=== PATIENT | male | born 1970 | race Caucasian/White ===

== ENCOUNTER 2018-11-27 11:27 | Day surgery (SDC) | payer OTHER, SELFPAY ==
--- NOTE | 2018-11-07 03:13 | HP_ITS ---
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 Steel Checker Required: No Is patient in pain?: Yes (Bilateral groin) Pain scale (1-10): 3 Allergies Penicillins Allergy (Unknown, Verified 11/07/18 14:32) Unknown Medications NK 11/07/18 [History Confirmed 11/07/18] PFSH Medical History Numbness and tingling (Acute) Hemorrhoids (Acute) Nausea (Acute) Abdominal pain (Acute) Testicular torsion (Inactive) Surgical History History of torsion of testis (Acute) Hx of foot surgery (Acute) Hx of arthroscopy of left knee (Acute) Hx of wisdom tooth extraction (Acute) Family History Father Seizures Heart disease Throat cancer Social History (Updated 11/07/18 @ 15:13 by Nahum Franz MD) Smoking Status: Former smoker second hand exposure: No alcohol intake: former year quit: 2018 substance use type: marijuana caffeine: Yes what type of physical activity do you participate in: none frequency: does not exercise HPI HPI HPI: MANJU CHAKRABORTY, is a 48 M who presents to the office today for HPI HPI Surgical H&P: Yes HPI: MANJU CHAKRABORTY, is a 48 M who presents to the office today for painful bulge in his left groin area. Patient has noticed this for better than a month. States that he was trying to manhandled his tractor out of mud it started to develop some pain in his left groin area and then finally noticed a bulge in the left inguinal area that was approximately 1 month ago since then he started to develop some discomfort noticing a small bulge on the right side. He has had no change in his bowel or bladder habits. He has had no previous abdominal surgeries but he has had a testicular torsion surgery in the remote past. ROS General General: No weight change, appetite, fatigue, colon cancer, breast cancer or weakness HEENT HEENT: No difficulty swallowing, eye injury, eye surgery, swollen glands or hoarseness Endo Endocrine: No thyroid disease, diabetes mellitus, thyroid cancer, Hair loss, heat intolerance or cold intolerance Skin Skin: No rash or changing moles Musc Musculoskeletal: No back problems, arthritis, rheumatoid arthritis, gout or joint pain Cardio Cardiovascular: No murmur, pacemaker, heart disease, atrial fibrillation, high blood pressure, heart attack, heart stent, palpitations, shortness of breat with exertion or chest pain Psych Psychiatric: No depression, anxiety or hearing voices Resp Respiratory: No shortness of breath, No sleep apnea, No cough, No COPD, No asthma, No emphysema, No wheezing Gastro Gastrointestinal: Yes abdominal pain, Yes nausea or vomiting, No diarrhea, No constipation, No blood in stool, No acid reflux, Yes hemorrhoids, Yes ulcers, No gallbladder problem, No black,tarry stools Jay Hematologic: No blood thinners, No blood disorders, No bleeding, No anemia, No blood clots Neuro Neurologic: Yes numbness, Yes tingling, No weakness Exam Const General: no acute distress, well developed, well hydrated Orientation: oriented to person, oriented to place, oriented to time [facility] Head: normocephalic, atraumatic Ears: external ears normal Mouth: moist mucous membranes Eyes Sclera: sclerae normal Pupils: normal by confrontation Neck Neck: no lymphadenopathy noted Neck mass: No Thyroid: thyroid normal, symmetrical Chest Chest palpation & inspection: normal inspection of the chest Resp Effort & Inspection: normal respiratory effort Auscultation: clear to auscultation bilaterally Percussion: percussion normal Cardio Rate: regular rate Rhythm: regular rhythm Heart Sounds: no murmurs GI Palpation: soft, no hepatosplenomegaly, no masses, tender Rectal Exam: other Other: Bilateral inguinal hernias are identified on exam. The left is larger than the right. The left is more symptomatic and painful. Rectal exam deferred. Extrem General: normal to inspection, no clubbing, cyanosis or edema Assessment & Plan Problems 1. Non-recurrent bilateral inguinal hernia without obstruction or gangrene K40.20 Plan My plan is to perform a laparoscopic bilateral inguinal hernia repair. The planned surgical procedure was discussed extensively with the patient. The risks, benefits, anticipated outcomes and possible complication were mentioned. The patient understands that all hernia repair surgery has a chance of recurrence and/or chronic post-operative pain. My staff has also explained the procedure in understandable terms and the patient was given the option to take printed material concerning the planned procedure. The patient had the opportunity to ask questions concerning the planned procedure. The patient freely consents to the planned procedure. Coding Level of Care Code Off vis,new,level 3 Diagnoses Non-recurrent bilateral inguinal hernia without obstruction or gangrene K40.20 ??Obstruction and gangrene presence: without obstruction or gangrene ??Recurrence: non-recurrent 11/07/18 1514 <Electronically signed by Nahum brown MD> Date _ Nahum Franz MD I have re-examined the patient. There are no clinical changes since date of exam.
--- NOTE | 2018-11-27 | HERN_PTH ---
PATIENT: MANJU CHAKRABORTY LOC: [facility] [place] U#:[id number] AGE/SX: 48/M ROOM: RE11/27/[address]: Dr. Nahum Franz MD : 1970 BED: DIS: 11/27/2018 SPEC #: [id number] RECD: 11/28/18 12:41 STATUS: IVANA REKodi #: [id number] MIGEL: 11/27/18 00:[address]: Nahum Franz DEPT: SURGICAL PATHOLOGY RECD BY: Mushtaq Baer ENTERED: 11/28/18 12:42 SP TYPE: Hernia OTHR DR: Mackenzie Rocha, BODY HANGER-C Tissues: LIPOMA OF CORD Procedures: Surgery Specimen Level III HEADER OPERATION: Laparoscopic bilateral inguinal hernia repair PRE-OP DIAGNOSIS: Bilateral inguinal hernias TISSUE SUBMITTED: Cord lipoma, right MICROSCOPIC DIAGNOSIS Cord lipoma right: Mature adipose tissue, consistent with lipoma. SJ:cornelio 11/29/18 MICROSCOPIC DESCRIPTION Slides are reviewed. GROSS DESCRIPTION Received is one container labeled with the patient name and designated cord lipoma right. The specimen consists of two irregular fragments of yellow fatty tissue that in aggregate measure 2.5 x 2 x 0.3 cm. The specimen is totally submitted in one cassette. /AM:sp 11/28/18 TC:1 CPT: 84508
[2018-11-27 11:43] VITALS: BP 131/81; PULSE 49; RESP 16; TEMP 37.1; O2SAT 98; BMI 29.5
--- NOTE | 2018-11-27 13:57 | OP.PCM_ITS ---
Problem List (1) Bilateral inguinal hernia Status: Acute Qualifiers: Obstruction and gangrene presence: without obstruction or gangrene Recurrence: non-recurrent Qualified Code(s): K40.20 - Bilateral inguinal hernia, without obstruction or gangrene, not specified as recurrent Report of Operation Date of Procedure: 11/27/18 Pre-Operative Diagnosis: Bilateral inguinal hernia Post-Operative Diagnosis: Same Surgery/Procedure Performed:: Bilateral inguinal herniorrhaphy with mesh (laparoscopically) Type of Anesthesia:: General Anesthesiologist: oJse St Specimen's removed: Cord lipoma right Estimated Blood Loss (mL): < 25 cc Fluids Replaced: 600 cc LR Description of Procedure: Patient was brought into the operating room. Placed in the supine position. Under excellent general trach intubation Escobar catheter was placed in the abdomen was sterilely prepped draped in usual fashion. Local was injected supraumbilically. Curvilinear incision was made. Dissection was carried down to the fascia. Fascia was grasped with Diaz. Varies needle was placed inside the abdomen. The abdomen was insufflated to 15 torr. A 10/12 trocar was placed. It was flank by 2 #5 trochars placed under direct visualization. There was no injury to underlying structures. Patient was placed in the head down rotated to the left position. I scored the peritoneum on the right. I disse cted down to Dwaine's ligament. I dissected laterally. Patient had a small right inguinal hernia which was dissected from the cord and vessel structures he had a small cord lipoma which was subsequently removed with a Hemoclip on its pedicle supply. I fashioned a medium right 3D max mesh into the wound. Lot number [employer] [id number] reference #[id number]. It was tacked to Dwaine's ligament with a pro-tacker was tacked superiorly and laterally with sparing tacks it was re- peritoneal lysed with the pro-tacker as well covering the mesh completely. That was then rotated to the right. Peritoneum on the left was scored. I dissected out a large indirect inguinal hernia and large cord lipoma which stayed into the abdomen. I dissected down to Dwaine's ligament dissecting it free and I dissected further laterally free I placed one small Hemoclip on the right side on a small side pedicle of the lipoma but not the main branch pedicle of the lipoma. I fashioned a large 3D max mesh into the wound lot number [id number] 06/06/2005 reference #[id number]. It was tacked to Dwaine's ligament with the pro-tacker tacked superiorly and laterally with sparing tacks. Reperitonealized area covering the mesh completely. Ileal inguinal nerve blocks were performed bilaterally. Trochars were removed under direct visualization good hemostasis was noted. Fascia the umbilical port was closed with a [id number] stitch of 0 Vicryl. Skin incisions were closed with some particular stitches of 4-0 Monocryl. Steri-Strips were applied sterile dressings were applied and the patient tolerated the procedure well. Escobar catheter was removed. - Admit VTE Documentation VTE Present on Admission: No VTE Mechan Device Prophylaxis: SCD's VTE Pharm Prophylaxis ordered?: No Reason prophylaxis not ordered:: Treatment Not Indicated
--- NOTE | 2018-11-27 13:58 | DCINST_ITS ---
Discharge Diet: Light diet - advance as tolerated Discharge Activity: Return to Normal Activity, May Drive - when you are no longer taking narcotic pain medications., May Shower - with the bandage in place 1-2 days after surgery. Lifting Restrictions: 20 pounds for 8 weeks. Additional Activity Instructions:: Climbing stairs is fine, walking is encouraged. Sitting in bed may be uncomfortable. Sitting up using your lateral muscles (sitting up sideways) is usually more comfortable. Do not drive, work heavy equipment of sign legal documents for 24 hours. If your hernia repair was an ingunial repair, you may have scrotal swelling, an ice pack and/or athletic support can provide more comfort. Pain medications may cause nausea, you should typically eat light foods as you take your pain medications. Pain medications may also cause constipation. If you have difficulty with this, discuss with your doctor. Call your doctor if your incision/area has: Continuous Slow Oozing, Sudden Increased Bleeding, Increased Pain/ Swelling, Increased Redness, Foul Smelling Discharge Call your doctor if you observe: Fever of 101 or Higher Suture Line Care: Avoid Pulling/Pushing, Avoid Pinching/Bending Additional Dressing/Incision Instructions:: Leave the operative bandage on for 2-3 days. When you remove the bandage, leave the steri-strips on place until your follow up appointment or they fall off. Allergies/Adverse Reactions: Allergies Penicillins Allergy (Unknown, Verified 11/27/18 11:42) Unknown Medications to take at Discharge Oxycodone HCl/Acetaminophen [Percocet 5/325] 1 - 2 tab PO Q4H PRN PRN 6 Days #30 tab 11/27/18 The following prescriptions were given: Oxycodone HCl/Acetaminophen [Percocet 5/325] 1 - 2 tab PO Q4H PRN PRN 6 Days #30 tab PRN Reason: Pain Prescription Printed Primary Care Physician: Mackenzie Rocha NP-C [Primary Care Provider] - Test Results: Test results from this visit will be discussed in further detail at your follow- up appointment, if applicable. Please Follow Up With: Nahum Franz MD - [phone] When: Plan to have a follow up appointment in 7 days. Call to schedule.
[2018-11-27] MEDS: Bupivacaine Mpf 0.5% 30 ML VIAL (14:06)
[2018-11-27 15:03] VITALS: BP 131/81; BP 145/99; PULSE 63; RESP 16; TEMP 36.3; O2SAT 96
[2018-11-27 15:15] VITALS: BP 129/87; BP 131/81; PULSE 60; RESP 16; O2SAT 99
[2018-11-27 15:30] VITALS: BP 125/92; BP 131/81; PULSE 56; RESP 16; O2SAT 98
[2018-11-27 15:41] VITALS: BP 118/87; BP 131/81; PULSE 57; RESP 18; TEMP 36.4; O2SAT 96
[2018-11-27 16:50] VITALS: BP 127/83; BP 131/81; PULSE 52; RESP 18; TEMP 36.7; O2SAT 100
== END 2018-11-27 16:55 | disposition home or self-care (01) ==
LOC: SDC 11:28 → AC 11:28
PROVIDERS: Family Provider Nurse Practitioner Family; PCP Nurse Practitioner Family; Referring Provider Surgery; Visit Provider Surgery
PROC: (CPT 49650; principal; 2018-11-27 13:05)
DX: K40.20 Bilateral inguinal hernia, without obstruction or gangrene, not specified as recurrent (principal); D17.6 Benign lipomatous neoplasm of spermatic cord; Z87.891 Personal history of nicotine dependence
CPT/HCPCS: 49650; 55559; 88304; 93005; J7120; C1781; J2405